=== PATIENT | female | born 1965 | race Caucasian/White ===

== ENCOUNTER → 2017-03-09 | Outpatient (CLI) | payer OTHER ==
[~2017-03-09] VITALS: Ht 168.9 cm; Wt 84.8 kg
[~2017-03-09] MED LIST: DAILY MULTIPLE1 EACH PO; FISH OIL 1,0001 EAC7 PO; OMEPRAZOLE20 MG PO; SINGULAIR10 MG PO
== END | disposition home or self-care (01) ==
LOC: AMB 07:59
PROC: 0DBL8ZX Excision of Transverse Colon, Via Natural or Artificial Opening Endoscopic, Diagnostic (ICD-10-PCS; principal; 2017-03-09)
DX: Z12.11 Encounter for screening for malignant neoplasm of colon (principal); D12.3 Benign neoplasm of transverse colon; K64.4 Residual hemorrhoidal skin tags; K21.9 Gastro-esophageal reflux disease without esophagitis; E78.01 Familial hypercholesterolemia; E07.9 Disorder of thyroid, unspecified; Z82.49 Family history of ischemic heart disease and other diseases of the circulatory system; Z80.1 Family history of malignant neoplasm of trachea, bronchus and lung; Z82.0 Family history of epilepsy and other diseases of the nervous system; Z88.1 Allergy status to other antibiotic agents; Z88.2 Allergy status to sulfonamides; Z91.040 Latex allergy status; Z91.030 Bee allergy status
CPT/HCPCS: 88305; J2250; J3010